=== PATIENT | female | born 1970 | race Caucasian/White ===

== ENCOUNTER 2018-05-07 07:14 | Emergency (ER) | payer SELFPAY ==
[~2018-05-07] VITALS: Ht 170.2 cm; Wt 91.7 kg
[~2018-05-07 07:14] MED LIST: ALEVE220 M1 PO; AMOXICILLIN-CL1 EACH PO; PENICILLIN V P500 MG PO
[2018-05-07] MEDS ORDERED: ALEVE220 MG PO (07:26)
[2018-05-07] MEDS ORDERED: ENULOSE10 GM/15 M PO (07:42)
== END 2018-05-07 08:03 | disposition home or self-care (01) ==
LOC: ED 07:14
DX: K59.00 Constipation, unspecified (principal); F17.200 Nicotine dependence, unspecified, uncomplicated; Z90.49 Acquired absence of other specified parts of digestive tract; Z88.1 Allergy status to other antibiotic agents; Z79.899 Other long term (current) drug therapy
CPT/HCPCS: 74022; 99283-25

== ENCOUNTER 2021-04-23 11:47 | Emergency (ER) | payer OTHER ==
[~2021-04-23] VITALS: Ht 170.2 cm; Wt 76.7 kg
[~2021-04-23 11:47] MED LIST changes: +ALEVE220 MG PO; +DICLOFENAC SODI75 MG PO; +ENULOSE10 GM/15 M PO; +HYDROCODON-ACE1 EA10 PO; +MACROBID 100 M100 MG PO
--- OUTSIDE RECORDS SUMMARY | 2021-04-23 11:54 | XMS ---
PreManage Notification: NADINE SOLORZANO [employer] Electronic Events No recent Security Events currently on file CRITERIA MET - Group Notification CARE PROVIDERS There are no care providers on record at this time. Alyssa has no Care Guidelines for this patient. Care History Medical/Surgical 05/08/2018 [facility] - W RECEIVED ED -CASE MANAGEMENT CONSULT- - PATIENT PHONE GOES STRAIGHT TO VOICEMAIL- NO VOICEMAIL IS SET UP TO LEAVE A MESSAGE. - NO PCP LETTER SENT TO PATIENT. - PATIENT DOES NOT HAVE INSURANCE- PLEASE CONTACT LENNY [phone] WHEN PATIENT IS SEEN IN THE ED TO APPLY FOR MEDICAL BENEFITS. E[facility] VISIT COUNT (12 MO.) 1 [facility] TOTAL 1 NOTE: Visits indicate total known visits. ED/UCC VISIT TRACKING (12 MO.) 04/23/2021 11:47 [facility] TYPE: Emergency COMPLAINT: - RT FOOT PAIN INPATIENT VISIT TRACKING (12 MO.) No inpatient visits to display in this time frame [email or web address]
== END 2021-04-23 13:23 | disposition home or self-care (01) ==
LOC: ED 11:47
DX: S93.401A Sprain of unspecified ligament of right ankle, initial encounter (principal); F17.200 Nicotine dependence, unspecified, uncomplicated; Z88.8 Allergy status to other drugs, medicaments and biological substances; X50.1XXA Overexertion from prolonged static or awkward postures, initial encounter
CPT/HCPCS: 73610; 99283-25